=== PATIENT | male | born 1990 | race African-American/Black ===

== ENCOUNTER 2024-03-21 05:05 | Day surgery (SDC) | payer OTHER ==
[2024-03-17 10:23] VITALS: BMI 32.5
[2024-03-21] MEDS ORDERED: oxyCODONE HCL 5 MG TABLET PO PRN (09:21)
[2024-03-21] MEDS ORDERED: ONDANSETRON 4 MG/2 ML VIAL IVPUSH PRN (09:21)
[2024-03-21] MEDS ORDERED: LACTATED RINGERS SOLUTION 1,000 ML IV SCH (09:30)
[2024-03-21] MEDS ORDERED: PROPOFOL 20 ML ONE (10:37)
[2024-03-21] MEDS ORDERED: MIDAZOLAM HCL 2 MG/2 ML SINGLE DOSE VIAL ONE (10:37)
[2024-03-21] MEDS ORDERED: DEXAMETHASONE SOD PHOSPHATE 4 MG/1 ML VIAL ONE (10:37)
[2024-03-21] MEDS ORDERED: ROCURONIUM BROMIDE 50 MG/5 ML SYRINGE ONE (10:37)
[2024-03-21] MEDS ORDERED: LIDOCAINE HCL 1%, 10 MG/ML (20ML VIAL) ONE (10:40)
[2024-03-21] MEDS ORDERED: BUPIVACAINE HCL/PF 0.5% (5MG/ML) 10 ML VIAL ONE (10:40)
[2024-03-21] MEDS: ceFAZolin 2 GRAM PREMIX BAG IVPB ONE (12:15)
[2024-03-21] MEDS: BUPIVACAINE HCL/PF 0.5% (5MG/ML) 10 ML VIAL IJ ONE ×3 (12:25)
[2024-03-21] MEDS: LIDOCAINE HCL 1%, 10 MG/ML (20ML VIAL) NR ONE ×3 (12:25)
[2024-03-21] MEDS ORDERED: CEFAZOLIN 2 GM in DEXTROSE 5%-WATER - 50 ML IVPB ONE (13:15)
[2024-03-21] MEDS ORDERED: HYDROmorphone HCl 2 MG/ML VIAL ONE (13:19)
[2024-03-21] MEDS ORDERED: SUGAMMADEX SODIUM 200 MG/2 ML VIAL ONE ×2 (13:39→14:24)
[2024-03-21] MEDS ORDERED: ONDANSETRON 4 MG/2 ML VIAL ONE (13:48)
[2024-03-21 16:44] VITALS: RESP 18; TEMP 96.9
[2024-03-21 17:03] VITALS: BP 157/97; PULSE 66
== END 2024-03-21 17:05 | disposition home or self-care (01) ==
LOC: JASU-SURG 05:05
PROVIDERS: ATTEND Surgery
PROC: 0YU50JZ Supplement Right Inguinal Region with Synthetic Substitute, Open Approach (ICD-10-PCS; principal; 2024-03-21 12:00)
DX: K40.90 Unilateral inguinal hernia, without obstruction or gangrene, not specified as recurrent (principal)
CPT/HCPCS: 86850; 86900; 86901; 88302-TC; 94760; C1781; J0131